=== PATIENT | male | born 1955 | race Hispanic/Latino ===

== ENCOUNTER → 2022-06-01 | Outpatient (CLI) | payer MEDICARE | END | disposition home or self-care (01) | LOC: RAH 12:53 | DX: N50.3 Cyst of epididymis (principal); N50.811 Right testicular pain | CPT/HCPCS: 76870 ==

== ENCOUNTER → 2023-09-13 | Outpatient (CLI) | payer MEDICARE ==
[~2023-09-13] MED LIST: REGADENOSON 0.4 MG/5 ML PF SYG IVP ONE
== END | disposition home or self-care (01) ==
LOC: SHCH 07:56
PROVIDERS: ATTEND Internal Medicine Cardiovascular Disease
DX: I25.10 Atherosclerotic heart disease of native coronary artery without angina pectoris (principal)
CPT/HCPCS: 78452; 96374; 93017; J2785; A9500 ×2

== ENCOUNTER → 2023-09-30 | Outpatient (CLI) | payer MEDICARE | END | disposition home or self-care (01) | LOC: SHCH 12:27 | PROVIDERS: ATTEND Internal Medicine Cardiovascular Disease | DX: I35.2 Nonrheumatic aortic (valve) stenosis with insufficiency (principal); I25.10 Atherosclerotic heart disease of native coronary artery without angina pectoris; I11.9 Hypertensive heart disease without heart failure; R09.89 Other specified symptoms and signs involving the circulatory and respiratory systems; E78.5 Hyperlipidemia, unspecified; E11.9 Type 2 diabetes mellitus without complications; Z95.1 Presence of aortocoronary bypass graft; Z79.82 Long term (current) use of aspirin; Z79.84 Long term (current) use of oral hypoglycemic drugs; Z79.899 Other long term (current) drug therapy | CPT/HCPCS: 93306; 93880 ==

== ENCOUNTER 2023-11-30 10:46 | Observation (INO) | payer MEDICARE ==
[2023-11-28 11:52] LABS: BASOPHILS # (AUTO) 0.04 K/uL (0.00-0.20); BASOPHILS % (AUTO) 0.4 % (0.0-5.0); EOSINOPHILS # (AUTO) 0.42 K/uL (0.00-0.70); EOSINOPHILS % (AUTO) 4.1 % (0.0-8.0); HEMATOCRIT 49.9 % (42-54); IMMATURE GRANULOCYTE ABSOLUTE 0.03 K/uL (0-1); LYMPHOCYTES # (AUTO) 2.8 K/uL (1.0-4.8); LYMPHOCYTES % (AUTO) 27.8 % (21.0-51.0); MEAN CORPUSCULAR HEMOGLOBIN 28.5 pg (27.0-33.0); MEAN CORPUSCULAR HGB CONC 32.5 g/dL (32.0-36.0); MEAN CORPUSCULAR VOLUME 87.7 fL (79-99); MONOCYTES # (AUTO) 0.8 K/uL (0.1-1.0); MONOCYTES % (AUTO) 7.6 % (3.0-13.0); NEUTROPHILS # (AUTO) 6.1 K/uL (1.8-7.7); NEUTROPHILS % (AUTO) 59.8 % (40.0-77.0); PLATELET COUNT (AUTO) 242 K/uL (130-400); RED BLOOD CELL COUNT(AUTO) 5.69 MIL/uL (4.50-6.20); RED CELL DISTRIBUTION WIDTH 13.3 % (11.0-15.5); WHITE BLOOD COUNT (AUTO) 10.2 K/uL (4.8-10.8)
[2023-11-28 12:04] LABS: CREATININE 0.6 mg/dL (0.5-1.3); POTASSIUM 4.1 mmol/L (3.5-5.1); PROTHROMBIN TIME 11.8 SEC (9.6-11.6)
[2023-11-28 12:05] LABS: PARTIAL THROMBOPLASTIN TIME 33.9 SEC (26.3-35.5)
[2023-11-28 12:22] LABS: APPEARANCE,URINE CLEAR (CLEAR); BILIRUBIN,URINE NEGATIVE (NEGATIVE); COLOR,URINE LIGHT-YELLOW (YELLOW); GLUCOSE, URINE (UA) >=1000 mg/dL (NEGATIVE); KETONES,URINE NEGATIVE (NEGATIVE); LEUKOCYTE ESTERASE ,URINE NEGATIVE Leu/uL (NEGATIVE); NITRATE,URINE NEGATIVE (NEGATIVE); PH,URINE 5.5 (5.0-8.0); PROTEIN,URINE NEGATIVE (NEGATIVE); UROBILINOGEN,URINE 0.2 mg/dL (0.2-1.0)
[2023-11-28 12:25] VITALS: BP 113/67; PULSE 80; RESP 16
[2023-11-28 12:25] LABS: ADD UA MICROSCOPIC YES
[2023-11-28 12:36] LABS: MUCUS,URINE RARE LPF (None Seen); RBC,URINE 0-1 /HPF (0-1); WBC,URINE 0-1 /HPF (0-1)
[2023-11-30] VITALS (9 sets, daily range): BP systolic 119–136; BP diastolic 65–77; PULSE 74–87; RESP 14–18; O2SAT 95–96
[~2023-11-30] VITALS: Ht 177.8 cm; Wt 84.9 kg
[~2023-11-30 10:46] MED LIST changes: +ASPI-1443 PO; +EMPA1TAB PO; +METF-444 PO; +METO25TA6 PO; +NITR0.4T50 SL; -REGADENOSON 0.4 MG/5 ML PF SYG IVP ONE; +ROSU10TA28 PO
[2023-11-30] MEDS ORDERED: IOHEXOL 350 MG/ML 100ML INFUS..BTL IV ONE (14:42)
[2023-11-30] MEDS ORDERED: MIDAZOLAM HCL 1 MG/ML 2ML VIAL ONE ×2 (14:42→15:16)
[2023-11-30] MEDS ORDERED: MEPERIDINE-PF 25 MG/ML SYG ONE ×2 (14:42→15:15)
[2023-11-30] MEDS ORDERED: LIDOCAINE HCL 400MG/20ML VIAL ONE (14:42)
[2023-11-30] MEDS ORDERED: HEPARIN 10,000 UNIT/10ML (1,000 UNIT/ML) VIAL ONE (14:42)
[2023-11-30] MEDS ORDERED: NITROGLYCERIN 50MG VIAL ONE (14:43)
[2023-11-30] MEDS ORDERED: CLOPIDOGREL 300MG TAB ONE (15:58)
[2023-11-30] MEDS ORDERED: 0.9%NACL 1000ML 1,000 ML IV SCH (16:30)
[2023-11-30] MEDS ORDERED: NITROGLYCERIN 0.4 MG SL TAB SL PRN (16:30)
[2023-11-30] MEDS ORDERED: ALPRAZOLAM 0.5 MG TABLET PO PRN (16:30)
[2023-11-30] MEDS ORDERED: DEXTROSE 50%-WATER 50 ML DISP.SYRIN IV PRN (16:30)
[2023-11-30] MEDS: INSULIN HUMULIN R 100 UNIT/ML 3ML SQ SCH (16:30)
[2023-11-30] MEDS: ACETAMINOPHEN 325 MG TAB PO PRN (18:09)
[2023-11-30] MEDS: ATORVASTATIN 20 MG TABLET PO SCH (21:07)
[2023-11-30] MEDS: METOPROLOL TARTRATE 25 MG TAB PO SCH (21:07)
[2023-12-01] VITALS (9 sets, daily range): BP systolic 108–133; BP diastolic 60–75; PULSE 69–87; RESP 14–20; O2SAT 95
[2023-12-01 05:19] LABS: HEMATOCRIT 43.6 % (42-54); MEAN CORPUSCULAR HEMOGLOBIN 28.6 pg (27.0-33.0); MEAN CORPUSCULAR VOLUME 86.5 fL (79-99); RED BLOOD CELL COUNT(AUTO) 5.04 MIL/uL (4.50-6.20); RED CELL DISTRIBUTION WIDTH 13.2 % (11.0-15.5); WHITE BLOOD COUNT (AUTO) 11.3 K/uL (4.8-10.8)
[2023-12-01 05:21] LABS: CREATININE 0.8 mg/dL (0.5-1.3); POTASSIUM 3.7 mmol/L (3.5-5.1)
[2023-12-01] MEDS: ASPIRIN 81 MG EC TAB PO SCH (08:14)
[2023-12-01] MEDS: CLOPIDOGREL 75MG TAB PO SCH (08:14)
[2023-12-01] MEDS: LINAGLIPTIN PO SCH (08:21)
[2023-12-01] MEDS: EMPAGLIFLOZIN PO SCH (08:21)
[2023-12-01] MEDS ORDERED: METO25TA6 PO (09:20)
== END 2023-12-01 10:47 | disposition home or self-care (01) ==
LOC: DAH 10:46 → DAHIP 10:47 → 2BH 16:42
PROVIDERS: ADMIT Internal Medicine Critical Care Medicine; ATTEND Internal Medicine Critical Care Medicine
DX: I25.119 Atherosclerotic heart disease of native coronary artery with unspecified angina pectoris (principal); I35.0 Nonrheumatic aortic (valve) stenosis; E78.5 Hyperlipidemia, unspecified; E11.9 Type 2 diabetes mellitus without complications; Z87.891 Personal history of nicotine dependence; Z95.1 Presence of aortocoronary bypass graft; Z79.899 Other long term (current) drug therapy
CPT/HCPCS: 80048 ×2; 83880; 85025; 85610; 85730; 81001; 36415 ×2; 71045; 93005; 93460; 85347; 82948 ×2; 85027; C1769 ×3; C1894 ×2; C1874; C1760; C1893; C1887; Q9965; G0378 ×19; J3490 ×2; J1644 ×2; J2250 ×2; J2175 ×2; Q9967; A4215; A4223 ×3; A4222; A4221; A4663; A4216; A4606; C9600; 99156; 99157

== ENCOUNTER → 2023-12-26 | Outpatient (CLI) | payer MEDICARE | END | disposition home or self-care (01) | LOC: RAH 13:35 | PROVIDERS: ATTEND Internal Medicine | DX: I70.203 Unspecified atherosclerosis of native arteries of extremities, bilateral legs (principal); E11.51 Type 2 diabetes mellitus with diabetic peripheral angiopathy without gangrene | CPT/HCPCS: 93925 ==

== ENCOUNTER → 2024-09-03 | Outpatient (CLI) | payer MEDICARE ==
[~2024-09-03] MED LIST changes: -ROSU10TA28 PO; +ROSU10TA72 PO
--- NOTE | 2024-09-11 09:27 | HMCSR ---
APPROVED REPORT EXAM: Two-dimensional and M-mode echocardiogram with Doppler and color Doppler. INDICATION ICD: I25.10 Atherosclerotic heart disease of [place] coronary artery without angina pectoris 2D Dimensions RVDd3.3 cmLVEF(%)55.0 (>50%)LVED Vol(simp.)122.0 mL IVSd1.2 (0.7-1.1cm)FS(%)25 %LVES Vol(simp.)56.0 mL LVDd5.0 (3.8-5.6cm)Ao Root(2D)3.4 (2.0-3.7cm)LVEF(%, simp.)54 % PWd1.2 (0.7-1.1cm)LVOT diam2.4 (1.8-2.4cm)LA ESV INDEX (BP)28.11 mL/m2 LVDs3.7 (2.5-4.0cm)IVC diam1.7 cm Aortic Valve AoV Vmax4.2 m/Briana Peak GR71.1 mmHgLVOT Vmax0.8 m/s AoV VTI0.9 mAo Mean GR46.6 mmHgLVOT VTI0.20 m FARAZ (VMAX)1.0 cm2Al P1/2T447 msAVA (VTI) 1.0 cm2 Mitral Valve MV E Vmax64.5 cm/sDECEL Szxg556 ms MV A Vmax88.2 cm/sP 1/2 T79 ms E/A ratio0.7MVA (PHT)2.8 cm2 TDI E/E' Jbxnrz84.3E/E' Lateral9.5 Pulmonary Valve PV Vmax0.9 m/sPV VTI0.19 mPV Mean GR2 mmHg PV Peak GR3.4 mmHg Tricuspid Valve TR Vmax2.4 m/sRAP (EST) 3 ntYyDLLZ81.6 mmHg TR Peak GR22.6 mmHg Left Ventricle Left ventricular cavity size is normal. There is normal LV segmental wall motion. There is mild keesha ntric left ventricular hypertrophy. LVEF is 55%. No left ventricle thrombus noted on this study. Grad e 1 diastolic dysfunction Right Ventricle The right ventricle is normal size. The right ventricular systolic function is normal. Atria The left atrium size is normal. The right atrium size is normal. Aortic Valve The aortic valve is calcified and displays decreased opening. The aortic valve may be functionally bi cuspid, the anterior leaflet is heavily calcified, fused with no excuerion. Mild to moderate aortic r egurgitation. AV Dimensionless Index is 0.21 Severe aortic stenosis with a calculated aortic valve ar ea is 1.0 cm2 with maximum pressure gradient of 71.1 mmHg and mean pressure gradient of 46.6 mmHg. Mitral Valve Mitral valve leaflets are mildly sclerotic but open well. Mitral regurgitation is trace. There is no mitral valve stenosis. Tricuspid Valve The tricuspid valve leaflets appear normal. There is trace tricuspid regurgitation. Pulmonic Valve Pulmonic valve is not well visualized. There is trace pulmonic valvular regurgitation. Great Vessels The aortic root is normal in size. Ascending aorta is dilated. The IVC is normal in size and collapse s >50% with inspiration. Pericardium No pericardial effusion. Conclusion Left ventricular cavity size is normal. There is mild concentric left ventricular hypertrophy. LVEF is 55%. Grade 1 diastolic dysfunction The right ventricle is normal size. The left atrium size is normal. The aortic valve is calcified and displays decreased opening. The aortic valve may be functionally bicuspid, the anterior leaflet is heavily calcified, fused with no excuerion. Mild to moderate aortic regurgitation. Severe aortic stenosis with a calculated aortic valve area is 1.0 cm2 with maximum pressure gradient of 71.1 mmHg and mean pressure gradient of 46.6 mmHg. Mitral valve leaflets are mildly sclerotic but open well. Mitral regurgitation is trace. There is trace tricuspid regurgitation. There is trace pulmonic valvular regurgitation. The aortic root is normal in size. The IVC is normal in size and collapses >50% with inspiration. No pericardial effusion.
== END | disposition home or self-care (01) ==
LOC: SHCH 09:24
PROVIDERS: ATTEND Internal Medicine Cardiovascular Disease
DX: I08.0 Rheumatic disorders of both mitral and aortic valves (principal); I25.10 Atherosclerotic heart disease of native coronary artery without angina pectoris
CPT/HCPCS: 93306

== ENCOUNTER 2025-03-01 10:26 | Day surgery (SDC) | payer MEDICARE ==
[2025-02-27 09:52] VITALS: BP 116/63; PULSE 81; RESP 14; TEMP 97.9
[2025-02-27 10:18] LABS: IMMATURE GRANULOCYTE ABSOLUTE 0.03 K/uL (0-1); NUCLEATED RED BLOOD CELLS 0.0 % (0.0-0.19); PLATELET COUNT (AUTO) 174 K/uL (130-400); RED BLOOD CELL COUNT(AUTO) 5.70 MIL/uL (4.50-6.20); RED CELL DISTRIBUTION WIDTH 18.1 % (11.0-15.5); WHITE BLOOD COUNT (AUTO) 10.4 K/uL (4.8-10.8)
[2025-02-27 10:29] LABS: CREATININE 0.7 mg/dL (0.5-1.3); GLOMERULAR FILTR. RATE CALC 100.0 mL/min (>90); GLUCOSE,RANDOM 94.0 mg/dL (70-105); SODIUM SERUM 142.0 mmol/L (136-145); UREA NITROGEN, BLOOD 11.0 mg/dL (7-18)
[2025-02-27 10:34] LABS: INR 1.11 (0.85-1.15)
--- NOTE | 2025-02-27 11:03 | EKG ---
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
[2025-02-27 11:13] LABS: ADD UA MICROSCOPIC YES; APPEARANCE,URINE CLEAR (CLEAR); GLUCOSE, URINE (UA) >=1000 mg/dL (NEGATIVE); LEUKOCYTE ESTERASE ,URINE NEGATIVE Leu/uL (NEGATIVE); NITRATE,URINE NEGATIVE (NEGATIVE); OCCULT BLOOD,URINE SMALL (NEGATIVE)
[2025-03-01] VITALS (10 sets, daily range): BP systolic 108–139; BP diastolic 57–74; PULSE 67–83; RESP 14–18; TEMP 97.5–97.6
[~2025-03-01] VITALS: Ht 172.7 cm; Wt 76.2 kg
[~2025-03-01 10:26] MED LIST changes: +FERR-72 PO; +IBUP-2071 PO; -METF-444 PO; +METF-446 PO
[2025-03-01] MEDS: 0.9%NACL 1000ML 1,000 ML IV SCH (11:52)
[2025-03-01] MEDS ORDERED: IOHEXOL 350 MG/ML 100ML INFUS..BTL IV ONE (16:52)
[2025-03-01] MEDS ORDERED: HEParin-NS 1,000 UNIT/500 ML 1,000 ML IV ONE (16:52)
[2025-03-01] MEDS ORDERED: LIDOCAINE HCL 400MG/20ML VIAL ONE (16:52)
[2025-03-01] MEDS ORDERED: SODIUM BICARB 50MEQ 50ML VIAL 50 ML ONE (16:52)
[2025-03-01] MEDS ORDERED: NITROGLYCERIN 50MG VIAL ONE (16:53)
[2025-03-01] MEDS ORDERED: MIDAZOLAM HCL 1 MG/ML 2ML VIAL ONE ×2 (17:29→17:36)
[2025-03-01] MEDS ORDERED: HEParin-NS 1,000 UNIT/500 ML 500 ML IV ONE (17:29)
[2025-03-01] MEDS ORDERED: DEXTROSE 50%-WATER 50 ML DISP.SYRIN IV PRN (19:00)
[2025-03-01] MEDS ORDERED: 0.9%NACL 1000ML 1,000 ML IV SCH (19:00)
--- NOTE | 2025-03-01 19:00 | CCATH ---
PROCEDURES: * Right and left heart catheterization. * Selective right and left coronary arteriogram. * Conscious sedation for 60 minutes. INDICATIONS: * Aortic stenosis by echocardiography, reasonably severe. * History of coronary artery disease. * Status post remote angioplasty and stenting of the LAD. * Recurrent anginal symptoms. COMPLICATIONS: None. TOTAL CONTRAST: Approximately 40 mL. DESCRIPTION OF PROCEDURE: The patient was taken to the Cardiac Catheterization Lab in stable condition after appropriate operative consents were signed. He was prepped and draped in the usual fashion. After conscious sedation was administered, the right common femoral artery and common femoral vein regions were infiltrated with 2% Xylocaine without epinephrine. At this point, utilizing ultrasound guidance, the right common femoral vein was accessed and the right common femoral artery was accessed. A 7-[place] sheath was advanced in the right common femoral vein in retrograde fashion with modified Seldinger technique. A 6 x 45 sheath was advanced in the right common femoral artery in retrograde fashion with a modified Seldinger technique. At this point, we were able to advance the [place]-Ramakrishna catheter and position in the right atrium, right ventricle, PA, and pulmonary capillary wedge positions. Pressures were measured and recorded. At this point, a multipurpose catheter was advanced and crossed into the left ventricular cavity and exchanged for a 5-[place] pigtail catheter. Simultaneous measures to the left ventricular end diastolic pressure and pulmonary capillary wedge pressure revealed no evidence of mitral stenosis. Pullback revealed a 40 mm peak gradient. Cardiac output was then performed. An F4 6-[place] catheter was then advanced selectively engaged in the ostium of the right coronary artery. This was imaged in multiplane. This was a large vessel that gave us an acute marginal large branching PDA, PLVP system. The RCA was free of disease. An FL4 6-[place] catheter was advanced and placed in the left main selectively. Imaging was obtained multiplanar identifying a normal left main with no significant stenosis. This bifurcated an LAD, circumflex. Circumflex coronary artery was a moderately large vessel that gave rise to several marginal branches and ongoing circ. The circumflex system was free of disease. The LAD was a moderately sized vessel and gave us several diagonals of septal perforators. The LAD had a patent stent in its mid portion. At this point, the procedure was completed, the patient tolerated it well, Perclose was utilized for arterial management of the femoral sheath and basket was utilized for venous sheath management. FINAL IMPRESSION: * Moderately severe aortic valve stenosis with a transaortic valve peak gradient of 40 mmHg and aortic valve area of 0.9 cm2. * Normal PA pressure. * Patent LAD stent with no other significant coronary lesions. PLAN: Continue medical management and consider additional evaluation and consideration for SAVR or TAVR for symptomatic changes. TID: [id number] RECEIPT: [id number]
--- NOTE | 2025-03-04 16:39 | HMCIMG ---
EXAM: CR Chest, 1 View. CLINICAL HISTORY: PRE OP COMPARISON: None provided. FINDINGS: LUNGS: Emphysematous lung changes No active infiltrate PLEURAL SPACES: No evidence of pleural effusion or pneumothorax. MEDIASTINUM: Cardiac size and mediastinal contours within normal limits. BONES: No acute osseous abnormality. IMPRESSION: 1. Emphysematous lung changes 2. No active infiltrate /[place]
== END 2025-03-01 22:07 | disposition home or self-care (01) ==
LOC: DAH 10:26
PROVIDERS: ATTEND Internal Medicine Cardiovascular Disease
DX: R94.39 Abnormal result of other cardiovascular function study (principal); I25.119 Atherosclerotic heart disease of native coronary artery with unspecified angina pectoris; I10 Essential (primary) hypertension; E11.9 Type 2 diabetes mellitus without complications; Z79.899 Other long term (current) drug therapy; Z79.82 Long term (current) use of aspirin; R07.9 Chest pain, unspecified; F17.210 Nicotine dependence, cigarettes, uncomplicated; Z98.890 Other specified postprocedural states; I35.0 Nonrheumatic aortic (valve) stenosis; E78.5 Hyperlipidemia, unspecified
CPT/HCPCS: 80048; 83880; 85025; 85610; 85730; 81001; 36415; 71045; 93005; 93460; 99156; 99157 ×4; 82948; A4223 ×3; Q9965; C1769 ×2; C1894 ×3; C1760; C1893; J3010; J3490 ×3; J7030; J2250 ×2; J1644 ×2; Q9967; A4215; A4222; A4221; A4663; A4216; A4606

== ENCOUNTER → 2025-03-18 | Outpatient (CLI) | payer MEDICARE ==
[~2025-03-18] MED LIST changes: +IOHEXOL 350 MG/ML 100ML INFUS..BTL IV ONE
--- NOTE | 2025-03-27 11:53 | CARDIOLOGY ---
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 A dedicated, limited window, coronary imaging protocol was used, with single breath-hold, retrospective ECG gating, and automated arrhythmia rejection. 100 cc of low osmolar contrast agent: Omnipaque 350 was delivered via a 18-gauge IV catheter in the right antecubital fossa, using a power injector and followed by 60 cc of normal saline bolus as a chaser. Collimated images were reformatted at 0.5 mm intervals, and sent to an offline independent workstation for interpretation, using 3D anatomic reconstructions: Curved multiplanar reconstructions, maximum intensity projections, and multiplanar imaging. No metoprolol was administered prior to scanning due to low baseline heart rate. No SL nitroglycerin was given. CORONARY ARTERY DESCRIPTIONS: The coronary arteries arise in normal position. Left main coronary artery: Normal caliber vessel that bifurcates into the LAD and LCx. No stenosis. Left anterior descending coronary artery: Normal caliber vessel and gives rise to diagonal and septal branches. There is a drug eluting stent in the proximal LAD that appears patent. Left circumflex coronary artery: Normal caliber, nondominant and gives rise to a large OM branch. No stenosis. Right coronary artery: Large, dominant vessel giving rise to the PL and PDA branches. No stenosis. CAD-RADs: 0, absence of CAD. Thoracic Aorta: Normal diameter. Sindi Hartman MD Cardiovascular Disease [facility] SINDI HARTMAN MD Mar 27, 2025 11:53
== END | disposition home or self-care (01) ==
LOC: RAH 07:55
PROVIDERS: ATTEND Internal Medicine Cardiovascular Disease
DX: I35.0 Nonrheumatic aortic (valve) stenosis (principal)
CPT/HCPCS: 74174; 75574; Q9967